=== PATIENT | female | born 2000 | race Caucasian/White ===

== ENCOUNTER 2019-12-02 20:59 | Emergency (ER) | payer BC ==
[2019-12-02 21:33] VITALS: BP 132/74
--- NOTE | 2019-12-02 21:43 | UC ---
Knee Pain HPI - HPI Summary HPI Summary: 18-year-old female comes in with a chief complaint of left knee pain. She her knee skiing today. When she tries to walk on it feels unstable and it makes clicking noises. Pain is less when she rests it. It is swollen. - History of Current Complaint Chief Complaint: UCLowerExtremity Stated Complaint: LEFT KNEE INJURY Time Seen by Provider: 12/02/19 21:27 Hx Last Menstrual Period: 11/25/19-11/30/19 Pain Intensity: 1 - Allergies/Home Medications Allergies/Adverse Reactions: Allergies Allergy/AdvReac Type Severity Reaction Status Date / Time No Known Allergies Allergy Verified 12/02/19 21:27 Home Medications: Home Medications Albuterol HFA INHALER* [Ventolin HFA Inhaler*] 1 - 2 puff INH Q4H PRN 12/02/19 [ History Confirmed 12/02/19] PMH/Surg Hx/FS Hx/Imm Hx Previously Healthy: Yes Respiratory History: Asthma - Surgical History Surgical History: None - Family History Known Family History: Positive: Non-Contributory - Social History Alcohol Use: Occasionally Substance Use Type: None Smoking Status (MU): Never Smoked Tobacco Review of Systems All Other Systems Reviewed And Are Negative: Yes Constitutional: Positive: Negative Skin: Positive: Negative Eyes: Positive: Negative ENT: Positive: Negative Respiratory: Positive: Negative Cardiovascular: Positive: Negative Gastrointestinal: Positive: Negative Motor: Positive: Other - SEE HPI Neurovascular: Positive: Negative Musculoskeletal: Positive: Other: - SEE HPI Neurological/Mental Status: Positive: Negative Psychological: Positive: Negative Is Patient Immunocompromised?: No Physical Exam Triage Information Reviewed: Yes Appearance: Well-Appearing, No Pain Distress, Well-Nourished Vital Signs: Initial Vital Signs Temp 98.4 F 12/02/19 21:28 Pulse 83 12/02/19 21:28 Resp 16 12/02/19 21:28 BP 132/74 12/02/19 21:28 Pulse Ox 97 12/02/19 21:28 Vital Signs Reviewed: Yes Eye Exam: Normal Eyes: Positive: Conjunctiva Clear Neck: Positive: Supple Respiratory: Positive: No respiratory distress Musculoskeletal: Positive: Other: - Left knee has an effusion. Is mildly tender to palpation in the posterior aspect. Patella is nontender to palpation lateral aspects are nontender. It feels unstable to exam. Hal was negative. Neurological: Positive: Alert Psychological: Positive: Age Appropriate Behavior Skin Exam: Normal Knee Pain Course/Dx - Course Course Of Treatment: I do not see any fracture on the x-rays. Final radiologist reading is pending. Patient has an effusion with instability giving concern for ACL injury. Patient was placed in Matthew wrap and knee immobilizer per nursing. Clinic patient and her neurovascular intact after placement. Patient given crutches she's can ice it is ibuprofen. Patient is from [place] and she's going on break and she prefers to follow-up with her orthopedist in [place] this coming week. Patient get reevaluated sooner if worse or any questions or concerns. - Differential Dx/Diagnosis Provider Diagnosis: Left knee pain, Effusion, left knee Discharge ED - Sign-Out/Discharge Documenting (check all that apply): Patient Departure All imaging exams completed and their final reports reviewed: No - Discharge Plan Condition: Stable Disposition: HOME Patient Education Materials: Swollen Knee Joint (ED) Referrals: eKnyatta Sharif MD [Medical Doctor] - [facility] [Provider Group] Additional Instructions: FOLLOW UP WITH ORTHOPEDICS OR SPORTS MEDICINE. GET REEVALUATED SOONER IF NOT IMPROVED OR WORSE OR ANY QUESTIONS OR CONCERNS. - Billing Disposition and Condition Condition: STABLE Disposition: Home
--- NOTE | 2019-12-03 07:42 | UC ---
- Progress Note Progress Note: wet read correct Course/Dx - Diagnoses Provider Diagnoses: Left knee pain, Effusion, left knee Discharge ED - Sign-Out/Discharge Documenting (check all that apply): Post-Discharge Follow Up All imaging exams completed and their final reports reviewed: Yes - Discharge Plan Condition: Stable Disposition: HOME Patient Education Materials: Swollen Knee Joint (ED) Referrals: [facility] [Provider Group] Kenyatta Sharif MD [Medical Doctor] - Additional Instructions: FOLLOW UP WITH ORTHOPEDICS OR SPORTS MEDICINE. GET REEVALUATED SOONER IF NOT IMPROVED OR WORSE OR ANY QUESTIONS OR CONCERNS. - Billing Disposition and Condition Condition: STABLE Disposition: Home
== END 2019-12-02 22:14 | disposition home or self-care (01) ==
LOC: UCEAST 20:59
DX: M25.562 Pain in left knee (principal); M25.462 Effusion, left knee; J45.909 Unspecified asthma, uncomplicated
CPT/HCPCS: 99203; G0463